=== PATIENT | male | born 1955 | race Caucasian/White ===

== ENCOUNTER 2017-02-14 12:36 | Inpatient (IN) | payer BC ==
[~2017-02-14] VITALS: Ht 177.8 cm; Wt 68.9 kg
[2017-02-14 12:47] VITALS: BP 110/52
--- NOTE | 2017-02-14 12:50 | NUR ---
Patient BIBA to bed 3 at this time.
[2017-02-14] MEDS ORDERED: ESCI5TAB PO (12:54)
[2017-02-14] MEDS ORDERED: LISI-420 PO (12:54)
[2017-02-14] MEDS ORDERED: PANT40EC PO (12:54)
[2017-02-14] MEDS ORDERED: [UNRECOGNIZED DRUG - CODE] PO (12:54)
[2017-02-14] MEDS ORDERED: FOLI1TAB90 PO (12:54)
[2017-02-14] MEDS ORDERED: FURO40TA9 PO (12:54)
[2017-02-14] MEDS ORDERED: BACTO TOP (12:54)
[2017-02-14] MEDS ORDERED: NACL 0.9% 1,000 ML IV ONE ×2 (13:00→14:00)
[2017-02-14 13:22] LABS: BASOPHILS % (AUTO) 0.4 % (0.0-2.0); EOSINOPHILS # (AUTO) 0.1 K/uL (0-0.4); EOSINOPHILS % (AUTO) 1.2 % (0.0-4.0); HEMATOCRIT 32.3 % (36-52); HEMOGLOBIN 10.5 g/dL (12.0-18.0); LYMPHOCYTES # (AUTO) 1.3 K/uL (2.0-11.5); LYMPHOCYTES % (AUTO) 13.5 % (20.5-51.1); MEAN CORPUSCULAR HEMOGLOBIN 29 pg (27-31); MEAN CORPUSCULAR HGB CONC 33 g/dL (33-37); MEAN CORPUSCULAR VOLUME 89 fL (80-94); MONOCYTES # (AUTO) 1.3 K/uL (0.8-1.0); MONOCYTES % (AUTO) 12.9 % (1.7-9.3); NEUTROPHILS # (AUTO) 7.3 K/uL (1.8-7.7); PLATELET COUNT (AUTO) 332 K/uL (140-450); RED BLOOD CELL COUNT(AUTO) 3.63 MIL/uL (4.20-6.10); RED CELL DISTRIBUTION WIDTH 12.5 % (11.6-13.7)
[2017-02-14 13:37] LABS: ALBUMIN 3.6 g/dL (3.4-5.0); ANION GAP 19.6 (8-16); CALCIUM 9.7 mg/dL (8.5-10.1); CREATININE 1.3 mg/dL (0.6-1.3); POTASSIUM 4.6 mmol/L (3.5-5.1); TOTAL BILIRUBIN 0.5 mg/dL (0.0-1.0); TOTAL PROTEIN, SERUM 7.5 g/dL (6.4-8.2)
[2017-02-14 13:39] LABS: LACTIC ACID 0.7 mmol/L (0.4-2.0)
[2017-02-14 13:40] LABS: INR 1.2 (0.8-1.2); PARTIAL THROMBOPLASTIN TIME 29.4 secs (22-35.6); PROTHROMBIN TIME 11.1 secs (10.8-13.4)
--- NOTE | 2017-02-14 14:02 | NUR ---
semi-alie's--pt awake alert oriented to name place time and event---pt added jan[birth year] is his birthday month---no s/s resp distress--full clear speech---x2 sr up [facility] and locked --awaits dispo
--- NOTE | 2017-02-14 14:35 | NUR ---
pt to ct scan via [facility]
[2017-02-14] MEDS ORDERED: ONDANSETRON 4 MG/2 ML VIAL IVP PRN (14:40)
[2017-02-14] MEDS ORDERED: ACETAMINOPHEN 325 MG TAB PO PRN (14:40)
--- NOTE | 2017-02-14 14:50 | NUR ---
returned from ct scan
--- NOTE | 2017-02-14 14:58 | NUR ---
x-rays completed at bedside
--- NOTE | 2017-02-14 15:02 | NUR ---
-Pt transferred to Tele via [facility] rm 107-A--report given to Regis ENGEL
[2017-02-14 15:30] VITALS: BP 144/63
--- NOTE | 2017-02-14 15:30 | NUR ---
Admitted from ER, with chief complaint of ALTERED MENTAL STATUS, DX LEFT LEG CELLULITIS. 62 y/o ,Male, Cooperative, AOX3, CONFUSED AT TIMES, ABLE TO VERBALIZE NEEDS. BLE EDEMA NOTED. LEFT LEG CELLULITIS NOTED. GENERALIZED AND BLE WEAKNESS AND LIMITED RANGE OF MOTION NOTED. IV ACCESS ASYMPTOMATIC, PATENT AND INTACT. oriented to call light, bed, phone,television, bathroom, smoking policy, visiting hours, procedures, ID bracelet on. Belongings list checked. SAFETY MEASURES ENSURED. CALL LIGHT WITHIN REACH. WILL CONTINUE TO MONITOR.
[2017-02-14] MEDS: NACL 0.9% 1,000 ML IV SCH (17:08)
--- NOTE | 2017-02-14 17:10 | NUR ---
PT RESTING COMFORTABLY IN BED. IVF INFUSING WELL. ALL NEEDS MET. SAFETY MEASURES ENSURED.
[2017-02-14] MEDS ORDERED: PNEUMOCOCCAL VACCINE 23 MCG/0.5 ML VIAL IMVAC SCH (18:05)
[2017-02-14] MEDS: HYDROcodone/APAP 5/325 MG 1 TAB TAB PO PRN ×2 (18:37→22:35)
--- NOTE | 2017-02-14 19:30 | NUR ---
ASSUMED CARE OF PATIENT, CONFUSED AT MOST OF THE TIME. SITTING AT BEDSIDE. CALL LIGHT WITHIN REACH.
--- NOTE | 2017-02-14 19:40 | NUR ---
ENDORSED PLAN OF CARE TO LEAF TINNER NURSE. CONDITION STABLE.
--- NOTE | 2017-02-14 20:00 | NUR ---
PLAN OF CARE DISCUSSED WITH PATIENT, NEEDS REINFORCEMENT. CALL LIGHT WITHIN REACH.
[2017-02-14] MEDS ORDERED: PIPERACILLIN/TAZOBACTAM 3.375 GM VIAL IV ONE (20:46)
[2017-02-14] MEDS ORDERED: PIPERACILLIN/TAZOBACTAM 3.375 GM in DEXTROSE 5% 50 ML IV SCH (21:00)
--- NOTE | 2017-02-14 21:00 | NUR ---
IV OUT. PERICARE DONE, COMPLETE BED CHANGE NOTED. CALL LIGHT WITHIN REACH.
[2017-02-14] MEDS: PIPER/TAZO 3.375GM/D5W PREMIX 50 ML IV SCH (22:26)
--- NOTE | 2017-02-14 22:30 | NUR ---
UNABLE TO GET UP AND VOID. NO COMPLAINS. IV INSERTED BY RN. CALL LIGHT WITHIN REACH.
[2017-02-15] MEDS: LORazepam 2 MG/ML VIAL IVP PRN ×3 (00:05→21:43)
[2017-02-15 00:07] VITALS: BP 134/67
--- NOTE | 2017-02-15 00:08 | NUR ---
ATIVAN GIVEN ORDERED. PATIENT SCREAMING, ALMOST OUT OF BED. SIDE RAILS UP. BED ALARM ON. CALL LIGHT WITHIN REACH. REORIENT TO ROOM AND ROUTINE.
[2017-02-15] MEDS ORDERED: PIPERACILLIN/TAZOBACTAM 3.375 GM VIAL IV ONE (04:14)
[2017-02-15] MEDS: PIPER/TAZO 3.375GM/D5W PREMIX 50 ML IV SCH ×3 (04:18→20:48)
[2017-02-15] MEDS: NACL 0.9% 1,000 ML IV SCH ×2 (06:13→16:32)
[2017-02-15 06:20] LABS: BASOPHILS # (AUTO) 0.1 K/uL (0.00-0.22); BASOPHILS % (AUTO) 0.8 % (0.0-2.0); EOSINOPHILS # (AUTO) 0.1 K/uL (0-0.4); EOSINOPHILS % (AUTO) 0.9 % (0.0-4.0); HEMOGLOBIN 9.7 g/dL (12.0-18.0); LYMPHOCYTES % (AUTO) 11.9 % (20.5-51.1); MEAN CORPUSCULAR HEMOGLOBIN 30 pg (27-31); MEAN CORPUSCULAR HGB CONC 33 g/dL (33-37); MEAN CORPUSCULAR VOLUME 89 fL (80-94); MONOCYTES # (AUTO) 0.9 K/uL (0.8-1.0); MONOCYTES % (AUTO) 10.3 % (1.7-9.3); NEUTROPHILS # (AUTO) 6.6 K/uL (1.8-7.7); NEUTROPHILS % (AUTO) 76.1 % (42.2-75.2); PLATELET COUNT (AUTO) 295 K/uL (140-450); RED BLOOD CELL COUNT(AUTO) 3.25 MIL/uL (4.20-6.10); RED CELL DISTRIBUTION WIDTH 12.2 % (11.6-13.7); WHITE BLOOD COUNT (AUTO) 8.7 K/uL (4.8-10.8)
[2017-02-15 06:58] LABS: ALBUMIN 2.8 g/dL (3.4-5.0); CALCIUM 9.3 mg/dL (8.5-10.1); CREATININE 0.7 mg/dL (0.6-1.3); MAGNESIUM 1.3 mg/dL (1.8-2.4); TOTAL BILIRUBIN 0.8 mg/dL (0.0-1.0); TOTAL PROTEIN, SERUM 7.2 g/dL (6.4-8.2)
[2017-02-15 07:05] LABS: ANION GAP 20.7 (8-16); CARBON DIOXIDE 15.4 mmol/L (21-32); POTASSIUM 4.1 mmol/L (3.5-5.1)
--- NOTE | 2017-02-15 07:15 | NUR ---
ENDORSED CARE AT BEDSIDE WITH ASHLIE ENGEL, PATIENT IN STABLE CONDITION.
--- NOTE | 2017-02-15 07:16 | NUR ---
RECEIVED PT AWAKE BUT CONFUSED, REMOVING HIS GOWN LYING ON THE BED WITH SIDERAILS UP AND AT LOWEST POSITION, BED ALARMS ON. LEGS FLEXED WITH SUPERFICIAL CLOSED WOUNDS ON THE LEFT LEG. NO S/S OF RESPIRATORY DISTRESS. WITH IV ACCESS AT LEFT FOREARM 22G INFUSING FLUIDS WELL. SAFETY PRECAUTIONS ENFORCED. CALL LIGHT WITHIN REACH, WILL CONTINUE TO MONITOR. Addendum: 02/15/17 at 0923 by Alma Rivera RN EXCORIATIONS AND SOME SUPERFICIAL OPEN WOUNDS NOTED ON LEFT LEG
[2017-02-15 08:00] VITALS: BP 148/70
--- NOTE | 2017-02-15 08:19 | NUR ---
NOTIFIED DR. FARRAR RE: MAG LEVEL, WILL CARRY OUT NEW ORDER
[2017-02-15] MEDS: ENOXAPARIN 30 MG/0.3 ML SYR SUBQ SCH (08:46)
--- NOTE | 2017-02-15 08:47 | NUR ---
PT IS CONFUSED, DUE MED CRUSHED AND GIVEN WITH APPLE SAUCE. ABLE TO SWALLOW WELL. ATIVAN GIVEN DUE TO RESTLESSNESS, PT REMOVING HIS GOWN AND GETTING OUT OF BED
[2017-02-15] MEDS ORDERED: MAGNESIUM OXIDE 400 MG TAB PO SCH (09:00)
--- NOTE | 2017-02-15 09:58 | NUR ---
DR FARRAR AT BEDSIDE
--- NOTE | 2017-02-15 10:12 | NUR ---
PATIENT HAS BEEN SCREENED AND CATEGORIZED HIGH NUTRITION RISK. PATIENT WILL BE SEEN WITHIN 1-2 DAYS OF ADMISSION. 02/15/17-02/16/[address]
--- NOTE | 2017-02-15 10:30 | NUR ---
WOUND CARE EVALUATION NOTES: REASON FOR EVALUATION: LEG WOUND COMPLETE SKIN ASSESSMENT DONE ON THIS 62 Y/O MALE PATIENT FROM [facility] TO [facility], WITH INITIAL DIAGNOSIS OF CELLULITIS LEFT LEG. PAST MEDICAL HISTORY INCLUDE ALCOHOL LIVER DISEASE, CHRONIC ALCOHOL USE, HYPERTENSION AND DEPRESSION. ALL ABOVE INFORMATION WAS OBTAINED FROM THE ADMISSION H&P. LABS ARE WBC 8.7, H/H 9.7/29.0, GLUCOSE 106, ALBUMIN 2.8, PT/INR 11.1/1.2 AND PTT 29.4. CURRENT MEDS INCLUDE ENOXAPARIN, ZOSYN AND NORCO. PATIENT IS LETHARGIC AT THIS TIME, BUT AROUSABLE WITH NAME. SKIN COOL TO TOUCH WNL, TOENAILS ARE YELLOW AND THICKENED, NO HAIR GROWTH, NO EDEMA AND UNABLE TO PALPATE BILATERAL PEDAL PULSES. MOTTLING NOTED ON BILATERAL FEET. URINE AND BOWEL INCONTINENT. ABLE TO TURN SELF WITH MINIMAL ASSISTANCE. INITIAL PLAN OF CARE AND PRESSURE PREVENTIVE MEASURES DISCUSSED, UNABLE TO VERBALIZE FULL UNDERSTANDING. WILL REINFORCE TEACHING. INTEGUMENTARY: LLE - MULTIPLE PURPLISH DISCOLORATION WITH SCABS - MONOPHASIC FLOW ON BLE PER ARTERIAL U/S LEFT GREAT TOENAIL - HANGING RECOMMENDATIONS: -PAINT LLE WITH BETADINE DAILY PER PODIATRY ORDER -TURN AND REPOSITION PATIENT Q2H -ASSESS AND MONITOR SKIN CONDITION DURING POSITION CHANGE, PLEASE PAY PARTICULAR ATTENTION TO SACRALCOCCYX, ELBOWS AND HEELS -OFFLOAD BILATERAL HEELS BY PLACING PILLOWS UNDER CALVES AT ALL TIMES, UNLESS OTHERWISE CONTRAINDICATED -KEEP SKIN CLEAN AND DRY AT ALL TIMES. RECOMMENDATIONS DISCUSSED WITH PRIMARY RN. WILL FOLLOW UP PATIENT Q 7 DAYS AND PRN. PLEASE CONTACT C FOR ANY CONCERNS, QUESTIONS AND CHANGES IN SKIN CONDITION.
--- NOTE | 2017-02-15 10:48 | NUR ---
LEFT LEG RECHECKED TOGETHER WITH WOUND CARE NURSE, NO OPEN WOUNDS NOTED, LEFT TOENAIL HANGING
--- NOTE | 2017-02-15 10:53 | NUR ---
WOUND CARE NOTES: PMD OK WITH RECOMMENDATIONS FOR PODIATRY CONSULT, ARTERIAL AND VENOUS U/S OF BLE.
--- NOTE | 2017-02-15 11:35 | NUR ---
PT NOTED TO HAVE FEVER OF 100.4F. ADMINISTERED TYLENOL PRN, NOTIFIED DR FARRAR, WITH ORDERS FOR BLOOD CULTURE. WILL CARRY OUT ORDERS
--- NOTE | 2017-02-15 11:36 | NUR ---
COOLING MEASURES DONE. TEMPERATURE TO BE RECHECKED
--- NOTE | 2017-02-15 11:42 | NUR ---
PT NOTE 1138 RECEIVED ORDER FOR PT, MEDICAL CHART REVIEWED. ATTEMPTED EVAL BUT Pt WAS GIVEN ATIVAN DURING 1ST ATTEMPT; 2ND ATTEMPT, Pt HAS FEVER PER RN AND WAS STILL DIFFICULT TO AROUSE DUE TO ATIVAN. WILL FOLLOW UP WITH Pt TOMORROW. PVE(2)
--- NOTE | 2017-02-15 14:30 | NUR ---
WOUND CARE NOTES: SPOKE TO PODIATRY RESIDENT PHYSICIAN, DR. CORRIGAN, SHE STATED THAT NO DEBRIDEMENT TO BE DONE DUE TO SEVERE PAD. WILL CONTINUE LOCAL WOUND CARE WITH BETADINE.
--- NOTE | 2017-02-15 14:40 | NUR ---
DR MASTERS DRY ROASTER AT BEDSIDE.
[2017-02-15 16:00] VITALS: BP 158/73
--- NOTE | 2017-02-15 16:31 | NUR ---
PT ASLEEP, NO S/S OF RESPIRATORY DISTRESS OR DISCOMFORT. REPOSITIONED TO SIDE, KEPT CLEAN AND DRY. WILL CONTINUE TO MONITOR
--- NOTE | 2017-02-15 18:00 | NUR ---
DAUGHTER AT BEDSIDE REQUESTING INFORMATION ON ADVANCED DIRECTIVE. ORDERS IN FOR SOCIAL SERVICE
--- NOTE | 2017-02-15 19:04 | NUR ---
SISTER CAME IN, INFORMATION ON ADVANCED DIRECTIVES GIVEN
--- NOTE | 2017-02-15 19:31 | NUR ---
ENDORSED PT TO SUNI MIXER WET POUR IN STABLE CONDITION FOR CONTINUITY OF CARE
--- NOTE | 2017-02-15 19:32 | NUR ---
RECD. RESTING IN BED, AWAKE/ALERT, OX1, VERY CONFUSED. IV OF NS AT 80 ML/HR INFUSING, RIGHT FOREARM G 22. NO RESPIRATORY DISTRESS NOTED. LEFT LOWER EXTREMITIES WITH DISCOLORATION, LEFT FOOT WITH REDNESS. REORIENTED TO HOSPITAL SETTING. SAFETY MEASURES ENFORCED. REORIENTED TO HOSPITAL SETTING. NEEDS REINFORCEMENT. NO APPEARANCE OF PAIN NOTED 0/10.
[2017-02-15 20:00] VITALS: BP_SYST 150
--- NOTE | 2017-02-15 20:00 | NUR ---
Patient's Plan of Care was discussed and reviewed with COMPUTER OPERATIONS SPECIALIST: SUNI PINTO.
--- NOTE | 2017-02-15 21:00 | NUR ---
PULLED OUT IV, TRYING TO GET OUT OF BED. SUPERVISOR SPECIAL EFFECTS WATCHING PATIENT FOR SAFETY.
--- NOTE | 2017-02-15 21:25 | NUR ---
TRANSFERRED FROM RM 106A TO RM 122B FOR CLOSE MONITORING,
--- NOTE | 2017-02-15 21:44 | NUR ---
PT AGITATED, TRYING TO GET OUT OF BED. VS STABLE, WILL GIVE ATIVAN ORDERED.
--- NOTE | 2017-02-15 22:30 | NUR ---
STILL WITH AGITATION, TRYING TO GET OUT OF BED. WILL CONTINUE TO MONITOR.
--- NOTE | 2017-02-16 03:00 | NUR ---
STILL WITH ON AND OFF AGITATION , TRYING TO GET OUT OF BED. REORIENTED TO HOSPITAL SETTING.
[2017-02-16] MEDS: PIPER/TAZO 3.375GM/D5W PREMIX 50 ML IV SCH ×3 (04:13→21:00)
--- NOTE | 2017-02-16 04:18 | NUR ---
0500 ZOSYN INFUSING AT THIS TIME.
--- NOTE | 2017-02-16 07:00 | NUR ---
SLEPT ONLY FOR 2 HOURS DURING THE NIGHT. SAFETY MAINTAINED. WILL ENDORSE TO AM NURSE FOR CONTINUITY OF CARE.
--- NOTE | 2017-02-16 07:30 | NUR ---
RECEIVED REPORT FROM NIGHT NURSE. PT AOX2, CONFUSED, ABLE TO VERBALIZE NEEDS. NO CP, SOB OR S/S OF ACUTE DISTRESS. GENERALIZED WEAKNESS NOTED. LEFT LEG CELLULITIS NOTED. BLE CYANOSIS NOTED. INITIAL ASSESSMENT COMPLETED. IV ACCESS ASYMPTOMATIC, PATENT AND INTACT. IVF INFUSING WELL. DISCUSSED AND REVIEWED PLAN OF CARE WITH PT. PT VERBALIZES UNDERSTANDING. WILL CONTINUE TO REINFORCE TEACHING. SAFETY MEASURES AND BED ALARM ENSURED. CALL LIGHT WITHIN REACH. WILL CONTINUE TO MONITOR.
[2017-02-16 08:00] VITALS: BP 154/85
[2017-02-16] MEDS ORDERED: NICOTINE TRANSD SYS 14 MG/24 HR PATCH TD SCH (09:30)
[2017-02-16] MEDS: NACL 0.9% 1,000 ML IV SCH ×2 (09:44→16:36)
[2017-02-16] MEDS: ENOXAPARIN 30 MG/0.3 ML SYR SUBQ SCH (09:45)
--- NOTE | 2017-02-16 09:55 | NUR ---
MEDICATIONS ADMINISTERED WITH EDUCATION, PT VERBALIZES UNDERSTANDING. PT TOLERATED MEDS WELL. IVF INFUSING WELL. SAFETY MEASURES ENSURED. CALL LIGHT WITHIN REACH. WILL CONTINUE TO MONITOR. IV THERAPY NURSE IN TO CHANGE PT'S BED LINENS AND ASSIST WITH ADLS.
--- NOTE | 2017-02-16 10:14 | NUR ---
SS NOTE: I RECEIVED A CALL FROM PT'S SISTER, JENNIFER. SHE STATED THAT SHE USUALLY MAKES PT'S MEDICAL DECISIONS. SHE ALSO REQUESTED ADDITIONAL INFORMATION REGARDING ADVANCE DIRECTIVES FOR PT. I INFORMED HER THAT PT WOULD HAVE TO BE ALERT AND ORIENTED X4 TO COMPLETE AN ADVANCE DIRECTIVE, SHE VERBALIZED UNDERSTANDING. I LEFT A MESSAGE FOR PT'S DTR, NAKUL PROVIDING HER INFORMATION FOR ADVANCE DIRECTIVES FOR PT AND TO CONFIRM IF SHE WOULD LIKE HER AUNT, PT'S SISTER, JENNIFER TO MAKE PT'S MEDICAL DECISIONS. Addendum: 02/16/17 at 1025 by Iris Wick SS JENNIFER ALSO STATED THAT SHE IS IN AGREEMENT WITH PT GOING TO SHORT TERM SNF IF NEEDED.
--- NOTE | 2017-02-16 12:00 | NUR ---
PT EATING INDEPENDENTLY, STANDBY ASSISTANCE NEEDED. ALL NEEDS MET. SAFETY MEASURES AND BED ALARM ENSURED. CALL LIGHT AND PHONE WITHIN REACH. WILL CONTINUE TO MONITOR.
--- NOTE | 2017-02-16 12:08 | NUR ---
02/16/17 RD INITIAL ASSESSMENT COMPLETED PLEASE REFER TO NUTRITION ASSESSMENT UNDER CARE ACTIVITY FOR ESTIMATED NUTRITIONAL NEEDS. RD RECOMMENDATIONS: 1. CONTINUE ON REGULAR, MECHANICAL SOFT DIET TOLERATED. 2. ENCOURAGE INCREASED PO INTAKE --RD TO ADD [facility]ES TID FOR ADDITIONAL 900 KCAL AND [address] WILL F/U 3-5 DAYS; MODERATE RISK. AMANDA DAUGHERTY, RD
--- NOTE | 2017-02-16 12:24 | NUR ---
FAXED REVIEW TO [facility] [phone] PHONE NETO [phone]
--- NOTE | 2017-02-16 14:00 | NUR ---
RECEIVED CALL FROM DR GAYTAN, INFORMED OF CONSULT, STATED HE WILL COME IN TOMORROW MORNING.
[2017-02-16 16:00] VITALS: BP 118/80
--- NOTE | 2017-02-16 16:19 | NUR ---
RECEIVED CALL FROM DR FARRAR, STATED THE PLAN IS TO TRANSFER PT TO SNF TO CONTINUE ABX AND REFERRAL FOR OUTPATIENT VASCULAR CONSULT.
--- NOTE | 2017-02-16 16:28 | NUR ---
RECEIVED CALL FROM DR FARRAR AGAIN, STATED THE PLAN IS TO TRANSFER PT TO [facility] PER INSURANCE CONTRACTED. CM NOTIFIED OF POSSIBLE TRANSFER. CM STATED THAT TRANSFER WOULD NOT BE DONE UNTIL TOMORROW. Addendum: 02/16/17 at 2017 by Regis Rosales RN DR FARRAR MADE AWARE THAT CM WOULD NOT BE ABLE TO CLEAR PT FOR TRANSFER UNTIL TOMORROW.
--- NOTE | 2017-02-16 16:36 | NUR ---
NETO, NAVIGATION TEACHER FROM [facility] CALLED, ASKED WHAT SNF PT WAS FROM. NOTIFIED THAT PT IS FROM [facility]. NETO STATED THAT SHE IS IN CONTACT WITH DR FARRAR AND WILL CALL BACK.
[2017-02-16] MEDS ORDERED: ZOS3.375I IV (16:42)
[2017-02-16] MEDS ORDERED: HAB14T TD (16:42)
[2017-02-16] MEDS ORDERED: ACET-1182 PO (16:42)
[2017-02-16] MEDS ORDERED: ACET-9525 PO (16:42)
[2017-02-16] MEDS ORDERED: ONDA2SOL45 IVP (16:42)
[2017-02-16] MEDS ORDERED: LOV30I SUBQ (16:42)
[2017-02-16] MEDS: HYDROcodone/APAP 5/325 MG 1 TAB TAB PO PRN (16:52)
--- NOTE | 2017-02-16 18:52 | NUR ---
DR GAYTAN MADE AWARE OF CANCELLED CONSULT DUE TO PLANS TO TRANSFER TO SNF.
--- NOTE | 2017-02-16 19:30 | NUR ---
RECEIVED REPORT FROM DAY RN AT BEDSIDE, PATIENT IS AAOX2, WITH EPISODES OF CONFUSION. ON BEDREST. ON ROOM AIR, NO SOB OR SIGN OF DISTRESS AT THIS TIME, PATIENT HAS IV TO LEFT HAND, LEAKING, NEED TO START NEW IV. NOTED LEFT LEG CELLULITIS WITH SCABBING AND RASH, BOTH FEET ARE RED WITH SCABBING TO LEFT FOOT. DISCUSSED PLAN OF CARE WITH PATIENT, PATIENT VERBALIZED UNDERSTANDING, REINFORCEMENT NEEDED. SAFETY MEASURES CHECKED, CALL LIGHT WITHIN REACH, WILL CONTINUE TO MONITOR.
--- NOTE | 2017-02-16 19:40 | NUR ---
ENDORSED PLAN OF CARE TO PIPE STRIPPER NURSE. CONDITION STABLE.
--- NOTE | 2017-02-16 20:50 | NUR ---
RECEIVED CALL FROM [facility]NAG[facility]. PATIENT IS TO BE TRANSFERRED TO [facility] IN [place], PHONE NUMBER RECEIVED TO GIVE REPORT, TRANSPORTATION SET UP THROUGH [facility], ON WILL CALL, NEED TO CALL FOR RIVER DRIVER TIME. WILL START DISCHARGE PAPERWORK.
--- NOTE | 2017-02-16 21:36 | NUR ---
CALLED [facility] IN [place], GAVE REPORT TO FAMILIA. PATIENT TO BE GOING TO ROOM 116
--- NOTE | 2017-02-16 21:55 | NUR ---
CALLED [facility], STATED ETA IN 90 MIN, WILL GET PATIENT READY
--- NOTE | 2017-02-16 22:00 | NUR ---
NEW IV STARTED TO LEFT AC 22G, PATIENT TOLERATED WELL, WILL CONTINUE TO MONITOR.
--- NOTE | 2017-02-16 22:05 | NUR ---
JESSICA FROM CASE MANAGEMENT CALLED TO [facility] DOES NOT SECOND WATCH SERGEANT IN [facility], WAS AGREED TO CALL [facility] TO HAVE IT ARRANGED TO SECOND WATCH SERGEANT PATIENT, I WILL CALL AND SET UP TIME.
--- NOTE | 2017-02-16 22:10 | NUR ---
CALLED [facility] TO SET UP TRANSPORT [place] 1[place] OR LESS.
--- NOTE | 2017-02-16 23:10 | NUR ---
[facility] PICKED UP PATIENT, PAPERWORK SIGNED, DISCHARGE PHOTOS TAKEN, IV LEFT IN PLACE FOR CONTINUED ABX. WRIST BANDS REMOVED PATIENT LEFT ON GURNEY IN STABLE CONDITION.
[2017-02-17] MEDS ORDERED: NICOTINE TRANSD SYS 14 MG/24 HR PATCH TD SCH (09:00)
== END 2017-02-16 23:10 | DRG 602 ==
LOC: MED 12:38 → MMU 14:39 → OBSVTOIN 14:39 → UNDOADMOB 14:39 → INTOOBSV 14:39 → MMU 15:26 → MTU 15:26 → MMU 16:22 → OBSVTOIN 02-15 13:42 → MTU 02-15 13:42
PROVIDERS: ADMIT Hospitalist; ATTEND Hospitalist
DX: L03.116 Cellulitis of left lower limb (principal); G93.41 Metabolic encephalopathy; L97.921 Non-pressure chronic ulcer of unspecified part of left lower leg limited to breakdown of skin; E87.1 Hypo-osmolality and hyponatremia; L98.492 Non-pressure chronic ulcer of skin of other sites with fat layer exposed; L03.115 Cellulitis of right lower limb; E86.0 Dehydration; I10 Essential (primary) hypertension; K70.30 Alcoholic cirrhosis of liver without ascites; J45.909 Unspecified asthma, uncomplicated; F32.9 Major depressive disorder, single episode, unspecified; K21.9 Gastro-esophageal reflux disease without esophagitis; D63.8 Anemia in other chronic diseases classified elsewhere; I99.8 Other disorder of circulatory system; M62.262 Nontraumatic ischemic infarction of muscle, left lower leg; M62.261 Nontraumatic ischemic infarction of muscle, right lower leg; I70.202 Unspecified atherosclerosis of native arteries of extremities, left leg; K70.9 Alcoholic liver disease, unspecified; E83.42 Hypomagnesemia; F41.9 Anxiety disorder, unspecified; R56.9 Unspecified convulsions; Z87.891 Personal history of nicotine dependence; Z87.898 Personal history of other specified conditions; Z86.19 Personal history of other infectious and parasitic diseases
CPT/HCPCS: 36415; 70450; 71010; 73620; 73630; 80053; 82140; 82948; 83605; 83735; 83880; 84484; 85025; 85610; 85730; 87040; 87081; 90732; 93005; 93925; 93970; 96360; 97110; 97140; 99285; J1650; J2060; J2543; J7030; J7060; Q0092